=== PATIENT | male | born 1975 | race Caucasian/White ===

== ENCOUNTER 2024-01-23 09:22 | Emergency (ER) | payer OTHER ==
[~2024-01-23] VITALS: Ht 180.3 cm; Wt 135.4 kg
[2024-01-23 09:25] VITALS: BP 176/105; PULSE 70; O2SAT 99
[2024-01-23] MEDS ORDERED: LIDOcaine 5% patch TP SCH (11:20)
[2024-01-23] MEDS ORDERED: DICL50TA6 PO (11:29)
[2024-01-23] MEDS ORDERED: CYCL-1 PO (11:29)
[2024-01-23] MEDS ORDERED: LIDO700A32 TOP (11:29)
[2024-01-23] MEDS: dexamethasone sod phosphate 10mg/ml inj IM STA (11:32)
[2024-01-23] MEDS: ketorolac trometh. 30mg/ml inj. IM ONE (11:33)
[2024-01-23] MEDS: LIDOcaine 5% patch TP ONE (11:35)
[2024-01-23 11:50] VITALS: RESP 17; TEMP 98.1
== END 2024-01-23 11:52 | disposition home or self-care (01) ==
LOC: ER 09:24
DX: S39.012A Strain of muscle, fascia and tendon of lower back, initial encounter (principal); Z79.1 Long term (current) use of non-steroidal anti-inflammatories (NSAID); Z79.899 Other long term (current) drug therapy; X58.XXXA Exposure to other specified factors, initial encounter; Y93.89 Activity, other specified; Y92.89 Other specified places as the place of occurrence of the external cause; Y99.8 Other external cause status
CPT/HCPCS: 96372; 99284; J1100; J1885

== ENCOUNTER 2024-01-26 12:06 | Emergency (ER) | payer OTHER ==
[~2024-01-26] VITALS: Ht 180.3 cm; Wt 133.4 kg
[~2024-01-26 12:06] MED LIST: CYCL-1 PO; DICL50TA6 PO; LIDO700A32 TOP
[2024-01-26] MEDS: HYDROcodone/acetaminophen 5mg/325mg tablet PO ONE ×2 (13:13→13:27)
[2024-01-26] MEDS: orphenadrine citrate 60mg/2ml inj. IM ONE (13:13)
[2024-01-26] MEDS: ketorolac trometh. 30mg/ml inj. IM ONE (13:28)
[2024-01-26] MEDS ORDERED: NAPR-56 PO (14:15)
[2024-01-26] MEDS ORDERED: CYCL-1 PO (14:15)
[2024-01-26] MEDS ORDERED: METH4TAB81 PO (14:15)
[2024-01-26] MEDS ORDERED: LIDO700A47 TOP (14:17)
[2024-01-26 14:21] VITALS: BP 136/82; PULSE 77; RESP 18; TEMP 98.5; O2SAT 99
== END 2024-01-26 14:29 | disposition home or self-care (01) ==
LOC: ER 12:07
DX: S39.012A Strain of muscle, fascia and tendon of lower back, initial encounter (principal); M54.32 Sciatica, left side; Z79.899 Other long term (current) drug therapy; X58.XXXA Exposure to other specified factors, initial encounter; Y93.89 Activity, other specified; Y92.89 Other specified places as the place of occurrence of the external cause; Y99.8 Other external cause status
CPT/HCPCS: 72131; 96372; 99285; J1885; J2360